=== PATIENT | female | born 1960 | race Caucasian/White ===

== ENCOUNTER 2016-09-07 00:21 | Emergency (ER) | payer OTHER ==
[2016-09-07 01:09] VITALS: BP 121/74; PULSE 90; TEMP 97.9; BMI 31.5
[2016-09-07] MEDS ORDERED: ONDANSETRON 4 MG/2 ML VIAL IVPUSH ONE (01:33)
[2016-09-07] MEDS ORDERED: SODIUM CHLORIDE 1,000 ML IV STA ×2 (01:33→02:48)
[2016-09-07] MEDS ORDERED: morphine CARPU-JECT 4 MG/1 ML DISP.SYRIN IVPUSH ONE (01:33)
[2016-09-07] MEDS ORDERED: ONDANSETRON 4 MG/2 ML VIAL ONE (02:02)
[2016-09-07] MEDS ORDERED: morphine CARPU-JECT 4 MG/1 ML DISP.SYRIN ONE (02:02)
[2016-09-07 02:11] LABS: BASOPHIL 0.7 % (0-2.0); EOSINOPHIL 3.2 % (0-4.5); MCH 30.1 pg (25.7-33.7); MCHC 32.7 g/dl (32.0-36.0); NEUTROPHILS 39.3 % (42.8-82.8); PLATELET COUNT 204 K/MM3 (134-434)
[2016-09-07 02:34] LABS: ALBUMIN 3.4 g/dl (3.4-5.0); ALK PHOS 76 U/L (45-117); AMYLASE 49 U/L (25-115); ANION GAP 8 (8-16); BILIRUBIN,TOTAL 0.2 mg/dL (0.2-1.0); CALCIUM 8.5 mg/dL (8.5-10.1); CO2 29 mmol/L (21-32); COCKROFT - GAULT 92.1315; CREATININE 0.9 mg/dL (0.55-1.02); GLUCOSE,RANDOM 98 mg/dL (74-106); SGOT/AST 10 U/L (15-37); SGPT/ALT 18 U/L (12-78); TOT PROT 7.1 g/dl (6.4-8.2)
[2016-09-07 04:08] LABS: URINE APPEARANCE CLEAR; URINE BILIRUBIN NEGATIVE (NEGATIVE); URINE BLOOD NEGATIVE (NEGATIVE); URINE COLOR LTYELLOW; URINE GLUCOSE (UA) NEGATIVE (NEGATIVE); URINE KETONE NEGATIVE (NEGATIVE); URINE LEUK ESTERASE NEGATIVE (NEGATIVE); URINE NITRITE NEGATIVE (NEGATIVE); URINE PROTEIN NEGATIVE (NEGATIVE); URINE UROBILINOGEN NEGATIVE E.U./dl (0.2-1.0)
[2016-09-07] MEDS ORDERED: PANTOPRAZOLE SODIUM 40 MG in SODIUM CHLORIDE 100 ML IVPB ONE (04:20)
--- NOTE | 2016-09-07 04:25 | PDOC ---
History of Present Illness - General Chief Complaint: Pain, Acute Stated Complaint: BACK PAIN,VOMITING Time Seen by Provider: 09/07/16 00:37 History Source: Patient, General Distillery Worker Used Exam Limitations: Language Barrier - History of Present Illness Travel History: No Initial Comments: 09/07/16 04:21 55yo Female patient presents to ED c/o left flank pain and generalized abd pain which began around 2pm yesterday. Patient also reports bloating, nausea, and dizziness. Patient denies any other complaints at this time. Timing/Duration: reports: getting worse, changing over time Quality: reports: moderate Abdominal Pain Onset Location: reports: generalized abdomen Pain Radiation: reports: no radiation Activities at Onset: reports: none Treatment Prior to Arrive: worse with: analgesics, antacids, cold pack, heat, laxative, enema, other Aggravating Factors: worse with: None, Defecation, Eating, Emotional upset, Exertion, [place], Movement, Voiding, Change in position Alleviating Factors: worse with: None, Belching, Shallow Breathing, Defecation, Eating, Holding Breath, Passing Gas, Change in Position, Rest, Voiding, Vomiting Past History - Travel Traveled outside of the country in the last 30 days: No Close contact w/someone who was outside of country & ill: No - Past Medical History Allergies/Adverse Reactions: Allergies Allergy/AdvReac Type Severity Reaction Status Date / Time No Known Drug Allergies Allergy Verified 09/07/16 00:32 Home Medications: Ambulatory Orders Dicyclomine HCl [Bentyl] 10 mg PO Q8H PRN #15 capsule 09/07/16 Famotidine [Pepcid -] 40 mg PO DAILY #30 tablet 09/07/16 Oxycodone HCl/Acetaminophen [Oxycodone-Acetaminophen 5-325] 1 each PO Q6H PRN # 12 tablet MDD 4 tabs 09/07/16 Anemia: No Asthma: No Cancer: No Cardiac Disorders: No CVA: No COPD: No CHF: No Dementia: No Diabetes: No GI Disorders: No Disorders: No HTN: No Hypercholesterolemia: No Liver Disease: No Seizures: No Thyroid Disease: No - Surgical History Abdominal Surgery: No Appendectomy: No Cardiac Surgery: No Cholecystectomy: No Lung Surgery: No Neurologic Surgery: No Orthopedic Surgery: No - Psycho/Social/Smoking Cessation Hx Suicidal Ideation: No Smoking History: Never smoked Hx Alcohol Use: No Drug/Substance Use Hx: No Substance Use Type: None Hx Substance Use Treatment: No Review of Systems - Review of Systems Able to Perform ROS?: Yes Is the patient limited Romansh proficient: No Cardiac (ROS): Yes: Chest Pain ABD/GI: Yes: Abdominal Distended, Nausea, Abdominal cramping. No: Constipated, Diarrhea, Poor Appetite, Poor Fluid Intake, Vomiting : No: Dysuria, Flank Pain, Hematuria, Pain Musculoskeletal: Yes: Back Pain All Other Systems: Reviewed and Negative *Physical Exam - Vital Signs Last Vital Signs Temp Pulse Resp BP Pulse Ox 97.9 F 90 20 121/74 100 09/07/16 00:31 09/07/16 00:31 09/07/16 00:31 09/07/16 00:09/07/16 00:31 - Physical Exam General Appearance: Yes: Nourished, Appropriately Dressed, Mild Distress. No: Apparent Distress, Moderate Distress, Severe Distress Neck: positive: Trachea midline, Supple. negative: Lymphadenopathy (R), Lymphadenopathy (L) Respiratory/Chest: positive: Lungs Clear, Normal Breath Sounds. negative: Chest Tender, Respiratory Distress, Accessory Muscle Use, Labored Respiration, Rapid RR Cardiovascular: positive: Regular Rhythm, Regular Rate Gastrointestinal/Abdominal: positive: Tender, Soft, Increased Bowel Sounds, Distended, Tenderness (generalized abdominal). negative: Guarding, Rebound Musculoskeletal: positive: Normal Inspection. negative: CVA Tenderness Extremity: positive: Normal Capillary Refill, Normal Inspection, Normal Range of Motion. 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, Fully Oriented, Alert, Normal Mood/ Affect, Normal Response, Motor Strength /5 ED Treatment Course - LABORATORY CBC & Chemistry Diagram: 09/07/16 02:00 09/07/16 02:00 - ADDITIONAL ORDERS Additional order review: Laboratory Results 09/07/16 09/07/16 04:00 02:00 Sodium 143 Potassium 4.2 Chloride 106 Carbon Dioxide 29 Anion Gap 8 BUN 16 D Creatinine 0.9 Creat Clearance w eGFR > 60 Random Glucose 98 Calcium 8.5 Total Bilirubin 0.2 D AST 10 L ALT 18 Alkaline Phosphatase 76 Total Protein 7.1 Albumin 3.4 Total Amylase 49 Lipase 159 Urine Color Ltyellow Urine Appearance Clear Urine pH 7.0 Urine Protein Negative Urine Glucose (UA) Negative Urine Ketones Negative Urine Blood Negative Urine Nitrite Negative Urine Bilirubin Negative Urine Urobilinogen Negative Ur Leukocyte Esterase Negative 09/07/16 02:00 RBC 4.32 MCV 92.0 MCHC 32.7 RDW 14.0 MPV 9.0 Neutrophils % 39.3 L Lymphocytes % 45.0 H Monocytes % 11.8 H Eosinophils % 3.2 Basophils % 0.7 - RADIOLOGY Radiology Studies Ordered: Category Date Time Status ABDOMEN & PELVIS CT WITH CONTR [CT] Stat CT Scan 09/07/16 03:26 Taken - Medications Given in the ED: ED Medications Discontinued Medications Generic Name Dose Route Start Last Admin Trade Name Freq PRN Reason Stop Dose Admin Sodium Chloride 1,000 mls @ 1,000 mls/hr 09/07/16 01:33 09/07/16 02:10 Normal Saline - IV 09/07/16 02:32 1,000 mls/hr ASDIR STA Administration Morphine Sulfate 4 mg 09/07/16 01:33 09/07/16 02:09 Morphine Injection - IVPUSH 09/07/16 01:34 4 mg ONCE ONE Administration Ondansetron HCl 4 mg 09/07/16 01:33 09/07/16 02:10 Zofran Injection IVPUSH 09/07/16 01:34 4 mg ONCE ONE Administration *DC/Admit/Observation/Transfer Diagnosis at time of Disposition: Gastroenteritis - Discharge Dispostion Disposition: HOME Condition at time of disposition: Improved Admit: No - Prescriptions Prescriptions: Dicyclomine HCl [Bentyl] 10 mg PO Q8H PRN #15 capsule PRN Reason: abdominal pain Oxycodone HCl/Acetaminophen [Oxycodone-Acetaminophen 5-325] 1 each PO Q6H PRN # 12 tablet MDD 4 tabs PRN Reason: Severe Pain Famotidine [Pepcid -] 40 mg PO DAILY #30 tablet - Referrals Referrals: STAFF,NOT ON [Primary Care Provider] - Javan Dixon MD [Staff Physician] - - Patient Instructions Printed Discharge Instructions: DI for Viral Gastroenteritis -- Adult Additional Instructions: SEGUIMIENTO CON EL DR. DIXON (GASTROENTEROLOGA) SI LOS SNTOMAS PERSISTAN MAS DE 1 SEMANA. GEOFFREY MEDICAMENTOS RACHEL SE PRESCRIBE. NO CONDUZCA, AUSTEN ALCOHOL, O UTILICE MAQUINARIA PESADA MIENTRAS LUPILLO OXICODONA. CAMACHO EXPLORACIN DE SAM DE CAMACHO ABDOMEN FUE NEGATIVA Y TRABAJO DE MARY DENTRO DE LMITES NORMALES. LAVON LOS FLUIDOS DEL PLENTY, REST. SI LOS SNTOMAS REALIZAN O CUALQUIER RECLAMOS DE PREOCUPACIN PARA LA EVALUACIN ADICIONAL. TAMBIN, SEGUIMIENTO CON CAMACHO PROVEEDOR DE CUIDADO PRIMARIO PARA LA EVALUACIN ADICIONAL. FOLLOW UP WITH DR. DIXON (GASTROENTEROLOGY) IF SYMPTOMS PERSIST OVER 1 WEEK. TAKE MEDICATIONS PRESCRIBED. DO NOT DRIVE, DRINK ALCOHOL, OR OPERATE HEAVY MACHINERY WHILE TAKING OXYCODONE. YOUR CAT SCAN OF YOUR ABDOMEN WAS NEGATIVE AND BLOOD WORK WITHIN NORMAL LIMITS. DRINK PLENTY FLUIDS, REST. IF SYMPTOMS WORSEN OR ANY CONCERNS RETURN FOR FURTHER EVALUATION. ALSO, FOLLOW UP WITH YOUR PRIMARY CARE PROVIDER FOR FURTHER EVALUATION. Print Language: URDU
[2016-09-07] MEDS ORDERED: PANTOPRAZOLE SODIUM 40 MG VIAL ONE (04:35)
--- NOTE | 2016-09-07 08:49 | PDOC ---
*Physical Exam - Vital Signs Last Vital Signs Temp Pulse Resp BP Pulse Ox 97.9 F 90 20 121/74 100 09/07/16 00:31 09/07/16 00:31 09/07/16 00:31 09/07/16 00:31 09/07/16 00:31 ED Treatment Course - LABORATORY CBC & Chemistry Diagram: 09/07/16 02:00 09/07/16 02:00 - ADDITIONAL ORDERS Additional order review: Laboratory Results 09/07/16 09/07/16 04:00 02:00 Sodium 143 Potassium 4.2 Chloride 106 Carbon Dioxide 29 Anion Gap 8 BUN 16 D Creatinine 0.9 Creat Clearance w eGFR > 60 Random Glucose 98 Calcium 8.5 Total Bilirubin 0.2 D AST 10 L ALT 18 Alkaline Phosphatase 76 Total Protein 7.1 Albumin 3.4 Total Amylase 49 Lipase 159 Urine Color Ltyellow Urine Appearance Clear Urine pH 7.0 Urine Protein Negative Urine Glucose (UA) Negative Urine Ketones Negative Urine Blood Negative Urine Nitrite Negative Urine Bilirubin Negative Urine Urobilinogen Negative Ur Leukocyte Esterase Negative 09/07/16 02:00 RBC 4.32 MCV 92.0 MCHC 32.7 RDW 14.0 MPV 9.0 Neutrophils % 39.3 L Lymphocytes % 45.0 H Monocytes % 11.8 H Eosinophils % 3.2 Basophils % 0.7 - Medications Given in the ED: ED Medications Discontinued Medications Generic Name Dose Route Start Last Admin Trade Name Freq PRN Reason Stop Dose Admin Sodium Chloride 1,000 mls @ 1,000 mls/hr 09/07/16 01:33 09/07/16 02:10 Normal Saline - IV 09/07/16 02:32 1,000 mls/hr ASDIR STA Administration Sodium Chloride 1,000 mls @ 1,000 mls/hr 09/07/16 02:48 09/07/16 03:42 Normal Saline - IV 09/07/16 03:47 1,000 mls/hr ASDIR STA Administration Pantoprazole Sodium 40 mg/ 100 mls @ 200 mls/hr 09/07/16 04:20 09/07/16 04:42 Sodium Chloride IVPB 09/07/16 04:49 200 mls/hr ONCE ONE Administration Morphine Sulfate 4 mg 09/07/16 01:33 09/07/16 02:09 Morphine Injection - IVPUSH 09/07/16 01:34 4 mg ONCE ONE Administration Ondansetron HCl 4 mg 09/07/16 01:33 09/07/16 02:10 Zofran Injection IVPUSH 09/07/16 01:34 4 mg ONCE ONE Administration Medical Decision Making - Medical Decision Making 09/07/16 08:49 Was called by radiology for an over read of a CT abdomen and pelvis. There is findings concerning for bowel obstruction. Phone call was placed to patient but no one picked up. Message left urging patient to return to the ER or to call back. *DC/Admit/Observation/Transfer Diagnosis at time of Disposition: Gastroenteritis - Prescriptions Prescriptions: Dicyclomine HCl [Bentyl] 10 mg PO Q8H PRN #15 capsule PRN Reason: abdominal pain Oxycodone HCl/Acetaminophen [Oxycodone-Acetaminophen 5-325] 1 each PO Q6H PRN # 12 tablet MDD 4 tabs PRN Reason: Severe Pain Famotidine [Pepcid -] 40 mg PO DAILY #30 tablet - Referrals Referrals: Javan Dixon MD [Staff Physician] - STAFF,NOT ON [Primary Care Provider] - - Patient Instructions Printed Discharge Instructions: DI for Viral Gastroenteritis -- Adult Additional Instructions: SEGUIMIENTO CON EL DR. DIXON (GASTROENTEROLOGA) SI LOS SNTOMAS PERSISTAN MAS DE 1 SEMANA. GEOFFREY MEDICAMENTOS RACHEL SE PRESCRIBE. NO CONDUZCA, AUSTEN ALCOHOL, O UTILICE MAQUINARIA PESADA MIENTRAS LUPILLO OXICODONA. CAMACHO EXPLORACIN DE SAM DE CAMACHO ABDOMEN FUE NEGATIVA Y TRABAJO DE MARY DENTRO DE LMITES NORMALES. LAVON LOS FLUIDOS DEL PLENTY, REST. SI LOS SNTOMAS REALIZAN O CUALQUIER RECLAMOS DE PREOCUPACIN PARA LA EVALUACIN ADICIONAL. TAMBIN, SEGUIMIENTO CON CAMACHO PROVEEDOR DE CUIDADO PRIMARIO PARA LA EVALUACIN ADICIONAL. FOLLOW UP WITH DR. DIXON (GASTROENTEROLOGY) IF SYMPTOMS PERSIST OVER 1 WEEK. TAKE MEDICATIONS PRESCRIBED. DO NOT DRIVE, DRINK ALCOHOL, OR OPERATE HEAVY MACHINERY WHILE TAKING OXYCODONE. YOUR CAT SCAN OF YOUR ABDOMEN WAS NEGATIVE AND BLOOD WORK WITHIN NORMAL LIMITS. DRINK PLENTY FLUIDS, REST. IF SYMPTOMS WORSEN OR ANY CONCERNS RETURN FOR FURTHER EVALUATION. ALSO, FOLLOW UP WITH YOUR PRIMARY CARE PROVIDER FOR FURTHER EVALUATION. Print Language: DIVEHI - Post Discharge Activity
== END 2016-09-07 05:15 | disposition home or self-care (01) ==
LOC: JER 00:21
PROC: 3E033NZ Introduction of Analgesics, Hypnotics, Sedatives into Peripheral Vein, Percutaneous Approach (ICD-10-PCS; principal; 2016-09-07)
PROC: 3E033GC Introduction of Other Therapeutic Substance into Peripheral Vein, Percutaneous Approach (ICD-10-PCS; 2016-09-07)
PROC: 3E0337Z Introduction of Electrolytic and Water Balance Substance into Peripheral Vein, Percutaneous Approach (ICD-10-PCS; 2016-09-07)
DX: K52.9 Noninfective gastroenteritis and colitis, unspecified (principal)
CPT/HCPCS: 36415; 74177-TC; 80053; 81003; 82150; 83690; 85025; 87086; 99283-25

== ENCOUNTER → 2016-09-21 | Day surgery (SDC) | payer OTHER ==
[2016-09-15 11:37] VITALS: BMI 31.5
[~2016-09-21] MED LIST: CEFAZOLIN 1 GM/D5W 50 ML IVPB ONE; CEPHALEXIN MONOHYDRATE 500 MG CAPSULE (UD) PO ONE; DEXAMETHASONE SOD PHOSPHATE 4 MG/1 ML VIAL ONE; DEXAMETHASONE SOD PHOSPHATE/PF 10 MG/ML SDV ONE; ESMOLOL HCL 10 ML ONE; LACTATED RINGERS SOLUTION 1,000 ML IV SCH; MIDAZOLAM HCL 2 MG/2 ML SINGLE DOSE VIAL ONE; ONDANSETRON 4 MG/2 ML VIAL IVPUSH PRN; ONDANSETRON 4 MG/2 ML VIAL ONE; PROPOFOL 20 ML ONE; ROPIVACAINE HCL 0.5% 30ML VIAL ONE; SUCCINYLCHOLINE CHLORIDE 200 MG/10 ML VIAL ONE; ceFAZolin 2 GRAM PREMIX BAG IVPB ONE; ceFAZolin SODIUM 1 GM VIAL ONE; oxyCODONE HCL 5 MG TABLET PO PRN
--- NOTE | 2016-09-21 07:55 | OP ---
Operative Note - Note: Operative Date: 09/21/16 Pre-Operative Diagnosis: left shoulder tear Operation: left arthroscopy Surgeon: Dallas Rao V Mediation Commissioner: Jaleesa Trinh Estimated Blood Loss (mls): 30 Operative Report Dictated: Yes
[2016-09-21 16:21] VITALS: TEMP 98.8
[2016-09-21 16:36] VITALS: BP 100/60; PULSE 88
--- NOTE | 2016-09-22 14:50 | PATH ---
Surgical Pathology Report Patient Name: FELIZ CERVANTES [facility]. Rec. #: [id number] /Age/Gender: 1960 (Age: 56) / F Account: [id number] Location: [facility] AMBULATORY Taken: 09/21/2016 Received: 09/21/2016 Reported: 09/22/2016 Physicians: Dallas Rao M.D. Specimen(s) Received SHAVINGS LEFT SHOULDER Clinical History Rotator cuff tear left shoulder Final Diagnosis LEFT SHOULDER, ARTHROSCOPIC SHAVING: PORTIONS OF SYNOVIUM, CARTILAGE, SKELETAL MUSCLE AND BONE CONSISTENT WITH ARTHROSCOPIC SHAVINGS. Electronically Signed Juanito Agustin M.D. Gross Description Received in formalin, labeled "shavings left shoulder," is a 3.0 x 2.4 x 0.3 cm. aggregate of martel-yellow soft tissue fragments. A personal service representative portion is submitted in one cassette. /09/21/201609/21/2016
--- NOTE | 2016-09-22 16:27 | OP ---
DATE OF OPERATION: 09/21/2016 PROCEDURE PERFORMED: 1. Rotator cuff repair. 2. Labrectomy. 3. Biceps tenodesis - Cazares. 4. Arthroscopic subacromial decompression. 5. Acromioclavicular arthroplasty. PREOPERATIVE DIAGNOSIS: Left shoulder internal derangement. POSTOPERATIVE DIAGNOSIS: 1. Left shoulder rotator cuff tear. 2. Full-thickness labral tear. 3. Biceps tear. 4. Impingement. 5. AC arthrosis. FINDINGS: See text. ANTIBIOTIC: Kefzol. ANESTHESIA: General with block. ANESTHESIOLOGIST: Kathy Lee MD COMPLICATIONS: None. DRAINS: None. SPECIMENS: None. IMPLANTS: 1. Biceps = FiberWire. 2. Cuff/medial = [employer] Regenexx 5.5, 3. Arthrex triple No. 2, lateral row, 4.75 Bio[employer] SwiveLock x 2. INDICATIONS: A 56-year-old lady sustained this injury in an accident and has not improved with conservative measures. MRI is positive. She is here for arthroscopic evaluation and treatment. PROCEDURE: The patient was brought to the operating room and placed on the table in the beach chair position. All acral prominence were padded. Care was taken with the neck. Sterile prep was performed with Betadine solution. Antibiotics were given intravenously. Bony landmarks were marked. EUA was remarkable for mild anterior instability. The posterior portal was opened using a blunt trocar atraumatically and the anterior port was opened atraumatically with an 18-gauge needle. Labrectomy: The posterior superior labrum had a large flap tear which was likely symptomatic. This was resected using hand instruments and normalized. This was not a posterior Bankart. The patient had a relatively effaced anterior labrum and almost had a drive-through sign, but this was equal to her other side on EEA. The subscapularis was not torn. The articular surfaces were good. The biceps did exhibit tearing and tenosynovitis when we pulled it up. The decision was made to do a Cazares-type tenodesis. Biceps tenodesis: We went externally and opened the biceps groove, did a large tenosynovectomy and then tenodesed here securely using a No. 2 FiberWire suture, which we actually removed from our SwiveLocks. Rotator cuff repair: While in the shoulder, we marked the undersurface of the cuff tear, which was visible from below. We went externally, found the needle and did debridement of the torn tissue, which left us with about a 1.8-cm AP dimension supraspinatus tear, which was full thickness. We burred the Juxta articular surface of the greater tuberosity down to punctate bleeding bone for healing. Then, we used a tap-ball combination instrument from [employer] and placed the 5.5-mm Regenexx anchor, triple-loaded with a No.,2 suture. Sutures were then passed retrograde and anterograde. We used 3 of them at about a 75-degree arc. The first row was tied down securely. Then, we did a double second row using two 4.75 SwiveLocks. We were very pleased with cuff contact, pressures and stability. Arthroscopic Subacromial Decompression: She had a significant anteromedial hook in the acromion. Therefore, we took the CA ligament down and did a biplane acromioplasty using bone instruments. Acromioclavicular arthroplasty: We now performed an acromioclavicular arthroplasty by resecting the entire lateral portion of the clavicle. The outer 11 mm was taken. Care was taken to avoid the conoid and trapezoid ligaments. CONCLUSION: The portals were closed with Monocryl. Dressings were applied. A sling was applied. She was sent to recovery with vital signs stable, having tolerated the procedure well. She will be discharged home with our shoulder sheet. She has Percocet for pain. I will see her in the office for followup in 1 week. CHAPIN SQUIRES M.D. [id number] MTDD
--- NOTE | 2016-09-25 14:59 | SURG ---
Surgery Front Services Agent Note Front Services Agent: Jaleesa Trinh PA-C Date of Service: 09/21/16 Diagnosis: left shoulder internal derangement Procedure: left shoulder rotator cuff repair, labrectomy, bicpes tenodesis, arthroscopic subacromial decompression, acromioclavicular arthroplasty I was present for the entirety of the operative procedure. For further detail, please refer to operative report. Visit type - Case Type Case Type: Scheduled Admission - Emergency Emergency Visit: No - New patient This patient is new to me today: Yes Date on this admission: 09/21/16 - Critical Care Critical Care patient: No
== END | disposition home or self-care (01) ==
LOC: FASU 08:49
PROVIDERS: ATTEND Orthopaedic Surgery
PROC: 0LS24ZZ Reposition Left Shoulder Tendon, Percutaneous Endoscopic Approach (ICD-10-PCS; 2016-09-21)
PROC: 0RNK4ZZ Release Left Shoulder Joint, Percutaneous Endoscopic Approach (ICD-10-PCS; 2016-09-21)
PROC: 0PBB4ZZ Excision of Left Clavicle, Percutaneous Endoscopic Approach (ICD-10-PCS; 2016-09-21)
PROC: 0RBK4ZZ Excision of Left Shoulder Joint, Percutaneous Endoscopic Approach (ICD-10-PCS; 2016-09-21)
PROC: 0LB24ZZ Excision of Left Shoulder Tendon, Percutaneous Endoscopic Approach (ICD-10-PCS; principal; 2016-09-21 11:13)
DX: M75.122 Complete rotator cuff tear or rupture of left shoulder, not specified as traumatic (principal); M66.812 Spontaneous rupture of other tendons, left shoulder; S43.492A Other sprain of left shoulder joint, initial encounter; X58.XXXA Exposure to other specified factors, initial encounter; Y93.9 Activity, unspecified; Y92.9 Unspecified place or not applicable; M75.42 Impingement syndrome of left shoulder; M19.012 Primary osteoarthritis, left shoulder
CPT/HCPCS: 88304-TC; 94760